=== PATIENT | female | born 1975 | race Caucasian/White ===

== ENCOUNTER 2017-05-26 09:00 | Outpatient (CLI) | payer BC | END 2017-05-26 09:01 | disposition home or self-care (01) | LOC: LAB.WCP 09:00 | PROVIDERS: ATTEND Physician Assistant Medical | DX: L30.9 Dermatitis, unspecified (principal) | CPT/HCPCS: 87070; 87205 ==

== ENCOUNTER 2017-06-10 08:34 | Outpatient (CLI) | payer BC ==
--- NOTE | 2017-06-23 16:44 | Mammography Report ---
DIGITAL SCREENING MAMMOGRAM: 06/10/2017 CLINICAL INDICATION: A 42-year-old for screening. TECHNIQUE: Routine CC and MLO projections as well as bilateral laterally exaggerated craniocaudal vi ews were obtained of the breasts. The patient reports having had previous mammograms in [place], [place], but films are not yet avai lable for comparison. If they become available, an addendum will be issued. The breasts demonstrate heterogeneously dense fibroglandular parenchyma bilaterally. No suspicious m asses, clustered microcalcifications, or regions of architectural distortion are identified. IMPRESSION: NEGATIVE EXAMINATION. RECOMMENDATION: ROUTINE ANNUAL SCREENING UNLESS OTHERWISE CLINICALLY INDICATED. BIRADS CATEGORY: 1, NEGATIVE. STANDARD QUALIFYING STATEMENTS 1. This examination was reviewed with the aid of Computed-Aided Detection (CAD). 2. A negative or benign imaging report should not delay biopsy if clinically suspicious findings are present. Consider surgical consultation if warranted. More than 5% of cancers are not identified b y imaging. 3. Dense breasts may obscure an underlying neoplasm. JOB #: [id number] EXT JOB #:[id number]
== END 2017-06-10 08:35 | disposition home or self-care (01) ==
LOC: DI.N 08:34
PROVIDERS: ATTEND Physician Assistant Medical
DX: Z12.31 Encounter for screening mammogram for malignant neoplasm of breast (principal)
CPT/HCPCS: 77067